=== PATIENT | male | born 1965 | race Caucasian/White ===

== ENCOUNTER 2017-10-29 19:17 | Emergency (ER) | payer BC, OTHER ==
[2017-10-29 19:43] VITALS: TEMP 97.9; BMI 38.7
--- NOTE | 2017-10-29 19:44 | PDOC ---
Rapid Medical Evaluation Time Seen by Provider: 10/29/17 19:35 Medical Evaluation: Allergies Allergy/AdvReac Type Severity Reaction Status Date / Time No Known Allergies Allergy Verified 02/09/14 03:44 10/29/17 19:35 I have performed a brief in-person person evaluation of the patient. The patient presents with a chief complaint of left temporal pressure x 2 days, describes as throbbing sensation, took aspirin and one additional dose of lisinopril. Denies dizziness, blurred vision, or chest pain. Pertinent physical exam findings: Nad lungs clear bilateral heart s1s2 neuro grossly intact ext: no pedal edema I have ordered the following: labs, The patient will proceed to the ED for further evaluation.
--- NOTE | 2017-10-29 20:43 | PDOC ---
History of Present Illness - General Chief Complaint: Pain Stated Complaint: HEADACHE Time Seen by Provider: 10/29/17 19:35 - History of Present Illness Initial Comments: 10/29/17 20:39 52 y.o. male with a PMH of AL (s/p stent), HTN and obesity presents to our ED c/ o 2 day h/o of pulsating temporal pain. Patient notes he was laying on his couch watching a movie this weekend when he suddenly felt a pulsating sensation in his temporal area. Patient states the pain is constant, sharp, and non- radiating. Patient denies any associated visual changes, photophobia, lacrimation or radiating facial pain. NKDA Surgical: Cardiac Stent Social: denies cigarettes, denies alcohol, denies recreational drugs PMD: [place] Past History - Past Medical History Allergies/Adverse Reactions: Allergies Allergy/AdvReac Type Severity Reaction Status Date / Time No Known Allergies Allergy Verified 10/29/17 19:40 Home Medications: Ambulatory Orders Aspirin [ASA -] 81 mg PO DAILY 02/09/14 Atorvastatin Calcium [Lipitor] 10 mg PO DAILY 02/09/14 Hydrochlorothiazide [Hctz -] 25 mg PO DAILY 02/09/14 Ibuprofen [Motrin] 800 mg PO TID #30 tablet 02/09/14 Lisinopril [Prinivil -] 40 mg PO DAILY 02/09/14 Methocarbamol [Robaxin -] 500 mg PO TID #21 tablet 02/09/14 Sertraline HCl [Zoloft -] 50 mg PO DAILY 02/09/14 Tramadol HCl/APAP 37.5/325Mg [Ultracet 37.5/325Mg Tablet] 1 combo NR Q4HWA PRN 02/09/14 COPD: No HTN: Yes Hypercholesterolemia: Yes Psychiatric Problems: Yes (depression) - Surgical History Cardiac Surgery: Yes (1 stent) - Suicide/Smoking/Psychosocial Hx Smoking Status: Yes (Occasional) Smoking History: Never smoked Have you smoked in the past 12 months: No Number of Cigarettes Smoked Daily: 0 Information on smoking cessation initiated: No Hx Alcohol Use: No Drug/Substance Use Hx: No Substance Use Type: Alcohol Review of Systems - Review of Systems Constitutional: No: Chills, Fever HEENTM: No: Blurred Vision, Recent change in vision, Double Vision, Hearing Loss Respiratory: No: Cough, Orthopnea, Shortness of Breath, Stridor, Wheezing, Hemoptysis ABD/GI: No: Constipated, Diarrhea, Nausea, Vomiting : No: Burning, Dysuria *Physical Exam - Vital Signs Last Vital Signs Temp Pulse Resp BP Pulse Ox 97.9 F 87 18 145/118 97 10/29/17 19:40 10/29/17 19:40 10/29/17 19:40 10/29/17 19:40 10/29/17 19:40 - Physical Exam General Appearance: Yes: Nourished, Obese HEENT: positive: EOMI, TC, Normal Voice. negative: Scleral Icterus (R), Scleral Icterus (L), TM Bulging, TM Dull, TM Erythema Neck: positive: Trachea midline, Supple Respiratory/Chest: positive: Lungs Clear Cardiovascular: positive: S1, S2 Gastrointestinal/Abdominal: positive: Normal Bowel Sounds, Protuberent. negative: Distended, Guarding, Rebound, Tenderness, Hernia, Mass Extremity: positive: Normal Capillary Refill, Normal Inspection Integumentary: positive: Normal Color, Dry, Warm Neurologic: positive: college tutor II-XII NML intact, Fully Oriented, Alert. negative: Facial Droop, Numbness, Confused, Depressed Affect ED Treatment Course - LABORATORY CBC & Chemistry Diagram: 10/29/17 20:32 10/29/17 20:32 Medical Decision Making - Medical Decision Making 10/29/17 20:45 52 y.o. male presents with 2 day h/o of pulsating sensation in his temporal area without any visual changes, photophobia, headache or facial pain. Will obtain basic labs, ESR to r/o temporal arteritis. Reasess. 10/29/17 22:20 WBC 14 - patient provides additional h/o of lower abdominal cramping and some R sided flank pain -- will check urine as infectious etiology pyelonephritis/UTI. ESR wnL. BP 145/118 --> Amlodipine 5 mg. 10/29/17 23:34 Patient signed out to Dr. Clarke (Resident) pending repeat CBC and UA. Likely disposition is home with strong counseling for outpatient follow up for anti- hypertensive medication regimen adjustment. *DC/Admit/Observation/Transfer Diagnosis at time of Disposition: Hypertension - Referrals Referrals: Tereso Carroll MD [Primary Care Provider] - - Patient Instructions - Post Discharge Activity
[2017-10-29 20:58] LABS: BASO % 0.5 % (0-2.0); EOS % 0.4 % (0-4.5); HEMATOCRIT 45.2 % (35.4-49); HEMOGLOBIN 15.7 GM/dL (11.7-16.9); LYMPH % 20.2 % (8-40); MCH 30.2 pg (25.7-33.7); MCHC 34.6 g/dl (32.0-35.9); MEAN CELL VOLUME 87.2 fl (80-96); NEUT % 69.9 % (42.8-82.8); PLATELET COUNT 365 K/MM3 (134-434); RBC 5.18 M/mm3 (4.00-5.60); RDW 12.9 % (11.9-15.9); WHITE BLOOD COUNT 14.5 K/mm3 (4.0-10.0)
[2017-10-29 21:28] LABS: INR 1.02 (0.82-1.09); PROTHROMBIN TIME (PATIENT) 11.5 SEC (9.98-11.88)
[2017-10-29 21:31] LABS: ACTIVATED PTT 27.4 SECONDS (26.9-34.4)
[2017-10-29 21:39] LABS: ALBUMIN 4.2 g/dl (3.4-5.0); ANION GAP 10 (8-16); BLOOD UREA NITROGEN 25 mg/dL (7-18); CALCIUM 8.8 mg/dL (8.5-10.1); CHLORIDE 104 mmol/L (98-107); CO2 24 mmol/L (21-32); GLUCOSE,RANDOM 89 mg/dL (74-106); POTASSIUM 4.1 mmol/L (3.5-5.1); SODIUM 138 mmol/L (136-145)
[2017-10-29 21:43] LABS: ALK PHOS 78 U/L (45-117); BILIRUBIN,TOTAL 0.7 mg/dL (0.2-1.0); CREATININE 1.3 mg/dL (0.7-1.3); SGOT/AST 61 U/L (15-37); SGPT/ALT 97 U/L (12-78); TOT PROT 7.8 g/dl (6.4-8.2)
[2017-10-29] MEDS ORDERED: amLODIPine BESYLATE 5 MG TABLET (FP) PO ONE (23:32)
[2017-10-29 23:36] LABS: URINE APPEARANCE CLEAR; URINE BILIRUBIN NEGATIVE (NEGATIVE); URINE BLOOD NEGATIVE (NEGATIVE); URINE COLOR LTYELLOW; URINE GLUCOSE (UA) NEGATIVE (NEGATIVE); URINE KETONE NEGATIVE (NEGATIVE); URINE LEUK ESTERASE NEGATIVE (NEGATIVE); URINE NITRITE NEGATIVE (NEGATIVE); URINE PROTEIN NEGATIVE (NEGATIVE); URINE UROBILINOGEN NEGATIVE mg/dL (0.2-1.0)
[2017-10-29] MEDS ORDERED: amLODIPine BESYLATE 5 MG TABLET (FP) ONE (23:40)
--- NOTE | 2017-10-29 23:57 | PDOC ---
*Physical Exam - Vital Signs Last Vital Signs Temp Pulse Resp BP Pulse Ox 97.9 F 87 18 145/118 97 10/29/17 19:40 10/29/17 19:40 10/29/17 19:40 10/29/17 19:40 10/29/17 19:40 - Physical Exam Comments: 10/30/17 00:19 GENERAL: Awake, alert, and fully oriented, in no acute distress HEAD: No signs of trauma, normocephalic, atraumatic EYES: PERRLA, EOMI, sclera anicteric, conjunctiva clear ENT: Hearing grossly normal, nares patent, oropharynx clear without. TM intact BL. exudates. Moist mucosa NECK: Normal ROM, supple, no lymphadenopathy, JVD, or masses LUNGS: No distress, speaks full sentences, clear to auscultation bilaterally HEART: Regular rate and rhythm, normal S1 and S2, no murmurs, rubs or gallops, peripheral pulses normal and equal bilaterally. EXTREMITIES : Normal inspection, Normal range of motion, no edema. No clubbing or cyanosis. NEUROLOGICAL: Cranial nerves II through XII grossly intact. Normal speech, normal gait, no focal sensorimotor deficits SKIN: Warm, Dry, normal turgor, no rashes or lesions noted ED Treatment Course - LABORATORY CBC & Chemistry Diagram: 10/30/17 23:46 10/29/17 20:32 - ADDITIONAL ORDERS Additional order review: Laboratory Results 10/29/17 10/29/17 10/29/17 23:22 20:32 20:32 PT with INR 11.50 INR 1.02 PTT (Actin FS) 27.4 Sodium 138 Potassium 4.1 Chloride 104 Carbon Dioxide 24 Anion Gap 10 BUN 25 H D Creatinine 1.3 D Creat Clearance w eGFR 57.97 Random Glucose 89 Calcium 8.8 Total Bilirubin 0.7 AST 61 H D ALT 97 H D Alkaline Phosphatase 78 D Total Protein 7.8 Albumin 4.2 Urine Color Ltyellow Urine Appearance Clear Urine pH 5.0 Ur Specific [place] 1.017 Urine Protein Negative Urine Glucose (UA) Negative Urine Ketones Negative Urine Blood Negative Urine Nitrite Negative Urine Bilirubin Negative Urine Urobilinogen Negative Ur Leukocyte Esterase Negative 10/29/17 20:32 RBC 5.18 MCV 87.2 MCHC 34.6 RDW 12.9 MPV 9.0 Neutrophils % 69.9 Lymphocytes % 20.2 Monocytes % 9.0 Eosinophils % 0.4 Basophils % 0.5 - Medications Given in the ED: ED Medications Discontinued Medications Generic Name Dose Route Start Last Admin Trade Name Patricia PRN Reason Stop Dose Admin Amlodipine Besylate 5 mg 10/29/17 23:32 10/29/17 23:45 Norvasc - PO 10/29/17 23:33 5 mg ONCE ONE Administration Medical Decision Making - Medical Decision Making 10/29/17 23:[address] Mason. 52 yo M 2 day h/o pulsating L temporal pain w/out visual disturbance, photophobia, headache or facial pain. Pt. worked up for possible temporal artertitis. Normal ESR~14. WBC~14. UA: Unremarkable. Patient with BP 145/118 . Was given amlodidipne 5 mg. Non adeherent to anti--HTN regimen. Will recheck BP. ED Course: 10/30/17 00:17 Repeat CBC: 10/30/17 01:16 WBC: 15.5-->16.0 UA: Unremarkable 10/30/17 01:[address], and requests discharge. Upon pt.reassesment has no clinical s/s of infection. Denies F/C, abdominal pain , urinary complaints, SOB, cough. No identifiable source of elevated WBC. States that he will f/u with his PMD for elevtaed WBC count. Repeat BP 140/100. Will cont. antihypertensive regimen as instructed by his PMD. Currently no visual complaints, and L sided temporal head pulsating resolved. 10/30/17 01:26 Will d/c with return precautions and advised to f/u with PMD. *DC/Admit/Observation/Transfer Diagnosis at time of Disposition: Hypertension, Temporal headache - Discharge Dispostion Disposition: HOME Condition at time of disposition: Stable - Referrals Referrals: Tereso Carroll MD [Primary Care Provider] - - Patient Instructions Printed Discharge Instructions: DI for High Blood Pressure Additional Instructions: Please return to the emergency department with any new or worsening symptoms or concerns. Please follow up with your primary care physician within 72 hours. Please follow up with your primary care physician with elevated white blood cell count of 16.0. Please continue anithypertensive BP medication regimen as instructed. - Post Discharge Activity - Attestations Physician Attestion: 10/30/17 01:15 I attest to the information provided in this note.
[2017-10-30 00:07] LABS: BASO % 0.9 % (0-2.0); EOS % 0.3 % (0-4.5); HEMATOCRIT 44.2 % (35.4-49); HEMOGLOBIN 15.4 GM/dL (11.7-16.9); LYMPH % 21.2 % (8-40); MCH 30.1 pg (25.7-33.7); MCHC 34.8 g/dl (32.0-35.9); MEAN CELL VOLUME 86.5 fl (80-96); MEAN PLT VOLUME 8.9 fl (7.5-11.1); NEUT % 68.6 % (42.8-82.8); PLATELET COUNT 352 K/MM3 (134-434); RBC 5.11 M/mm3 (4.00-5.60); RDW 12.9 % (11.9-15.9)
[2017-10-30] MEDS ORDERED: ACETAMINOPHEN 500 MG TABLET (FP) PO STA (00:26)
[2017-10-30] MEDS ORDERED: ACETAMINOPHEN 325 MG TABLET (FP) ONE (00:40)
[2017-10-30 02:03] VITALS: BP 145/90; PULSE 86
== END 2017-10-30 02:03 | disposition home or self-care (01) ==
LOC: JER 19:17
DX: I10 Essential (primary) hypertension (principal); R51 Headache; I25.2 Old myocardial infarction; E78.00 Pure hypercholesterolemia, unspecified; E66.9 Obesity, unspecified; F32.9 Major depressive disorder, single episode, unspecified; Z95.5 Presence of coronary angioplasty implant and graft; Z68.38 Body mass index [BMI] 38.0-38.9, adult; Z79.82 Long term (current) use of aspirin
CPT/HCPCS: 36415; 80053; 81003; 85025; 85610; 85651; 85730; 99282-25

== ENCOUNTER 2022-09-19 00:46 | Emergency (ER) | payer BC ==
[2022-09-19 01:01] VITALS: TEMP 97.6; BMI 38.7
[2022-09-19] MEDS ORDERED: ONDANSETRON 4 MG/2 ML VIAL IVPUSH ONE (01:18)
[2022-09-19] MEDS ORDERED: LACTATED RINGERS SOLUTION 1000 ML INFUS.BAG IV ONE ×2 (01:18→02:41)
[2022-09-19] MEDS ORDERED: ONDANSETRON 4 MG/2 ML VIAL ONE (01:22)
[2022-09-19 02:04] LABS: BASO % 0.4 % (0-2.0); EOS % 0.3 % (0-4.5); HEMATOCRIT 49.9 % (35.4-49); MCH 29.1 pg (25.7-33.7); MEAN CELL VOLUME 85.6 fl (80-96); MEAN PLT VOLUME 8.1 fl (7.5-11.1); MONO % 8.3 % (3.8-10.2); PLATELET COUNT 297 10^3/uL (134-434); RBC 5.83 M/mm3 (4.00-5.60); WHITE BLOOD COUNT 19.5 K/mm3 (4.0-10.0)
[2022-09-19 02:16] LABS: INR 1.09 (0.83-1.09); PROTHROMBIN TIME (PATIENT) 12.5 SEC (9.7-13.0)
[2022-09-19 02:18] LABS: ACTIVATED PTT 26.5 SECONDS (25.2-36.5)
[2022-09-19 02:26] LABS: CALCIUM 9.7 mg/dL (8.5-10.1)
[2022-09-19 02:27] LABS: ALBUMIN 4.2 g/dl (3.4-5.0); BLOOD UREA NITROGEN 27.4 mg/dL (7-18); MAGNESIUM 1.9 mg/dL (1.8-2.4)
[2022-09-19 02:30] LABS: CREATININE 1.4 mg/dL (0.55-1.3)
[2022-09-19 02:31] LABS: BILIRUBIN,TOTAL 0.8 mg/dL (0.2-1); TOT PROT 7.6 g/dl (6.4-8.2)
[2022-09-19] MEDS ORDERED: METOCLOPRAMIDE HCL INJECTION 10 MG/2 ML VIAL ONE (05:00)
[2022-09-19] MEDS ORDERED: METOCLOPRAMIDE HCL INJECTION 10 MG/2 ML VIAL IVPUSH ONE (05:00)
[2022-09-19 05:54] VITALS: BP 123/80; PULSE 94; RESP 21
[2022-09-19 05:54] LABS: N-TERMINAL BNP 64.2 pg/ml (5-125)
== END 2022-09-19 06:55 | disposition home or self-care (01) ==
LOC: JER 00:46
PROC: 3E033GC Introduction of Other Therapeutic Substance into Peripheral Vein, Percutaneous Approach (ICD-10-PCS; principal; 2022-09-19)
PROC: 3E033GC Introduction of Other Therapeutic Substance into Peripheral Vein, Percutaneous Approach (ICD-10-PCS; 2022-09-19)
DX: R11.0 Nausea (principal); R19.7 Diarrhea, unspecified; E86.0 Dehydration
CPT/HCPCS: 0241U-QW; 36415; 71045-TC-FY; 74177-TC; 80053; 83690; 83735; 83880; 84100; 84484; 85025; 85610; 85730; 86850; 86900; 86901; 93005; 93010; 99285-25